=== PATIENT | female | born 1995 ===

== ENCOUNTER 2025-07-30 11:57 | Outpatient (REF) | payer MEDICAID, SELFPAY ==
--- OUTSIDE RECORDS SUMMARY | 2025-07-29 14:15 | XMS_ITS | Encounter Summary ---
Author Organization [employer] Address [address] [facility] [address] [place] [address] Care Team Providers Care Backer Up Name Role Phone Kirsten Motley NP Primary Care Provider [phone] Reason for Visit * Reason Comments pelvic exam / pap smear Pelvic exam / pa p smear Encounter Details Date Type Department Care Team (Latest Contact Info) Description 07/29/2025 2:15 PM EDT Procedure Visit [facility] [address] [place] [address] Arabella Tucker CNM [address] [place] [address] Cervical cancer screening (Primary Dx); Screening examination for venereal disease Social History Tobacco Use Types Packs/Day Years Used Date Smoking Tobacco: Never Passive Smoke Exposure: Never Smokeless Tobacco: Never Alcohol Use Standard Drinks/Week Comments Never 0 (1 standard drink = 0.6 oz pur e alcohol) Depression Answer Date Recorded Patient Health Questionnaire-9 Score 0 03/14/2025 Patient Health Questionnaire-9 Score 0 03/14/2025 Last PHQ-9: Questionnaire Data Not on file 0 03/14/2025 Housing Stability Answer Date Recorded What is your housing situation today? I have jae diane 03/14/[address] you li ve. Do you have problems with any of the following? None of the above 03/14/2025 Food Insecurity Answer Date Recorded Within the past 12 months, y ou worried that your food would run out before you got money to buy more: Never True 03/14/2025 Within the past 12 months,th e food you bought just didn't last and you didn't have enough money to get more: Never True Transportation Answer Date Recorded In the past 12 months, has l ack of transportation kept you from medical appts, meetings, work or from getting things needed for daily living? No 03/14/2025 Utilities Answer Date Recorded In the past 12 months, has t he electric, gas, oil or water company threatened to shut off services in your home? No 03/14/2025 Depression Answer Date Recorded Patient Health Questionnaire-2 Score 0 03/14/2025 Internet Access Answer Date Recorded Internet Access Q1 No 03/14/2025 Internet Access Q2 I cannot afford it 03/14/2025 Comments Unknown Intention Date Recorded No desire to become (finding) 0 07/29/2025 Sex and Gender Information Value Date Recorded Sex Assigned at Female 03/05/2025 9:43 AM EDT Legal Sex Female 11:30 AM EST Gender Identity Female 03/05/2025 9:43 AM EDT Sexual Orientation Straight 03/05/2025 9: 43 AM EDT documented as of this encounter Last Filed Vital Signs Vital Sign Reading Time Taken Comments Blood Pressure 110/68 07/29/2025 2:37 PM EDT Pulse 88 07/29/2025 2:37 PM EDT Temperature 36.1 C (97 F) 07/29/2025 2:37 PM EDT Respiratory Rate 20 07/29/2025 2:37 PM EDT Oxygen Saturation - - Inhaled Oxygen Concentration - - Weight 72.6 kg (160 lb) 07/29/2025 2:37 PM EDT Height 162.6 cm (5' 4 ) 07/29/2025 2:37 PM EDT Body Mass Index 27.46 07/29/2025 2:37 PM EDT documented in this encounter Progress Notes * Arabella Tucker, DUONG - 07/29/2025 2:15 PM EDT Subjective Patient ID: Myra Hoffmann is a 30 y.o. female who presents for pap She thinks she had a pap a year ago in [place], but no results available. No prior abnormal. Started on Xulane 03/2025. Happy with method, denies ACHES. No missed/late patches. Would like breast and pelvic exam today. 1 AMAB partner x 5y, no safety concerns. Monthly menses x 5 days. No heavy flow orbothersome cramps. LMP 07/20/2025. Agrees to pap based STI testing today. Noticed some vaginal discomfort recently, no other vaginal or urinary symptoms. Review of Systems Eyes: Negative for visual disturbance. Respiratory: Negative for shortness of breath. Cardiovascular: Negative for chest pain and leg swelling. Genitourinary: Negative for dyspareunia, dysuria, frequency, genital sores, hematuria, menstrual problem, pelvic pain, urgency, vaginal bleeding, vaginal discharge and vaginal pain. No abnormal pap, no abnormal bleeding, no breast pain, no breast mass, no nipple discharge Skin: Negative for color change. Neurological: Negative for headaches. Objective BP 110/68 (BP Location: Left arm, Patient Position: Sitting, BP Cuff Size: Adult) Pulse 88 Temp97 ??F (36.1 ??C) (Oral) Resp 20 Ht 5' 4 (1.626 m) Wt 160 lb (72.6 kg) LMP 07/25/2025 BMI 27.46 kg/m?? Physical Exam Exam conducted with a fast food services manager present (Lore Flynn). Constitutional: Appearance: Normal appearance. Chest: Breasts: Right: Normal. No swelling, bleeding, inverted nipple, mass, nipple discharge, skin change or tenderness. Left: Normal. No swelling, bleeding, inverted nipple, mass, nipple discharge, skin change or tenderness. Genitourinary: General: Normal vulva. Labia: Right: No rash, tenderness, lesion or injury. Left: No rash, tenderness, lesion or injury. Vagina: Normal. No signs of injury and foreign body. No vaginal discharge, erythema, tenderness, bleeding or lesions. Cervix: No cervical motion tenderness, discharge, friability, lesion, erythema, cervical bleeding or eversion. Uterus: Normal. Not enlarged and not tender. Adnexa: Right adnexa normal and left adnexa normal. Right: No mass, tenderness or fullness. Left: No mass, tenderness or fullness. Lymphadenopathy: Upper Body: Right upper body: No supraclavicular or axillary adenopathy. Left upper body: No supraclavicular or axillary adenopathy. Neurological: Mental Status: She is alert. Psychiatric: Mood and Affect: Mood normal. Behavior: Behavior normal. Assessment/Plan Diagnoses and all orders for this visit: Cervical cancer screening - Pap Smear Cotest today. Repeat 5 years if normal/HPV negative. Will contact with results. Benign pelvic exam today. If yeast/bacterial vaginosis on pap, will treat. Screening examination for venereal disease - STI testing add on (NG, CT, Trich) Gonorrhea/Chlamydia/trichomonas off pap sent. Will contact with results Happy with patch. Reviewed side effects and danger signs. documented in this encounter Plan of Treatment Scheduled Orders Name Type Priority Associated Diagnoses Orde r Schedule Pap Smear Pathology and Cytology Routine Cervical cancer screening Ordered: 07/29/2025 STI testing add on (NG, CT, Trich) Pathology and Cytology Routine Screening examination for venereal disease Ordered: 07/29/2025 documented as of this encounter Visit Diagnoses Diagnosis Cervical cancer screening- Primary Screening for malignant neoplasm of the cervix Screening examination for venereal disease documented in this encounter Additional Health Concerns Assessment Noted Time PHQ-9 Depression Total Score: 0 03/14/20 10:58 AM EDT documented as of this encounter Care Teams Backer Up Relationship Specialty Start Date End Date Kirsten Motley NP [address] [place] [phone] PCP - General Family Medicine 03/14/25 documented as of this encounter
--- OUTSIDE RECORDS SUMMARY | 2025-07-30 15:11 | XMS_ITS | Clinical Summary ---
Author Organization [employer] Address [address] [facility] 7t [place] [address] Care Team Providers Care Fnp Name Role Phone Kirsten Motley NP Primary Care Provider [phone] Allergies No known active allergies Medications norelgestromin-eth inyl estradiol (Xulane) 150-35 MCG/24HRIndication s:Encounter for counseling regarding contraception Apply 1 patch each week for 3 weeks, then remove for 1 week. 3 patch 12 04/18/20 26 Active Active Problems No known active problems Encounters Date Type Department Care Team Description 07/29/2025 2:15 PM EDT Procedure Visit [facility] [address] [place] [phone] Arabella Tucker CNM Cervical cancer screening (Primary Dx); Screening examination for venereal disease 07/29/2025 Travel 06/18/2025 2:30 PM EDT Office Visit [facility] [address] [place] [phone] Kirsten Motley NP Encounter for surveillance of transdermal patch hormonal contraceptive device (Primary Dx) 06/18/2025 Travel 06/17/2025 Telephone [facility] [address] [place] [address] Fabiola Crane MA CHARTPREP 05/26/2025 Telephone [facility] [address] [place] [phone] Kirsten Motley NP Med Refill from Last 3 Months Family History Medical History Relation Name Comments No Known Problems Father Ulcers Mother Relation Name Status Comments Father Mother Social History Tobacco Use Types Packs/Day Years Used Date Smoking Tobacco: Never Passive Smoke Exposure: Never Smokeless Tobacco: Never Tobacco Cessation:Counseling Given: Not Answered Alcohol Use Standard Drinks/Week Comments Never 0 [...] Orientation Straight 03/05/2025 9: 43 AM EDT Last Filed Vital Signs Vital Sign Reading Time Taken Comments Blood Pressure 110/68 07/29/2025 2:37 PM EDT Pulse 88 07/29/2025 2:37 PM EDT Temperature 36.1 C (97 F) 07/29/2025 2:37 PM EDT Respiratory Rate 20 07/29/2025 2:37 PM EDT Oxygen Saturation 99% 06/18/2025 2:40 PM EDT Inhaled Oxygen Concentration - - Weight 72.6 kg (160 lb) 07/29/2025 2:37 PM EDT Height 162.6 cm (5' 4 ) 07/29/2025 2:37 PM EDT Body Mass Index 27.46 07/29/2025 2:37 PM EDT Plan of Treatment Health Maintenance Due Date Last Done Comments HIV Screening 1995 HPV Vaccines (1 - 3-dose series) 2010 Hepatitis C Screening 2013 DTaP/Tdap/Td Vaccines (1 - Tdap) 2014 Hepatitis B Vaccines (1 of 3 - 19+ 3-dose series) 2014 Pap Smear 2016 Cervical Cancer Screening 2025 HPV/Cotest 2025 COVID-19 Vaccine (1 - 2023-2 5 season) 2025 Influenza Vaccine (#1) 2025 Alcohol/Substance Use Screening 03/14/2026 03/14/2025 Depression Screening 03/14/2026 03/14/2025, 03/14/2025 Disability Screening 03/14/2026 03/14/2025 SDOH Screening 03/14/2026 03/14/2025 Tobacco Screening 07/01/2026 07/01/2025 Family Planning (PISQ) 07/29/2026 07/29/2025 Zoster Vaccines (1 of 2) 2045 RSV Patients and Patients Aged 60 years or older (1 - 1-dose 75+ series) 2070 HIB Vaccines Aged Out No longer eligi ble based on patient's age to complete this topic Hepatitis A Vaccines Aged Out No long er eligible based on patient's age to complete this topic IPV Vaccines Aged Out No longer eligi ble based on patient's age to complete this topic Meningococcal B Vaccine Aged Out No l onger eligible based on patient's age to complete this topic Meningococcal Vaccine Aged Out No sharron te eligible based on patient's age to complete this topic Pneumococcal Vaccine: Pediatrics (0 to 5 Years) and At-Risk Patients (6 to 49) Years Aged Out No longer eligible b ased on patient's age to complete this topic RSV under 20 months Aged Out No longe r eligible based on patient's age to complete this topic Rotavirus Vaccines Aged Out No longer eligible based on patient's age to complete this topic Insurance [employer] C3 Care Teams Fnp Relationship Specialty Start Date End Date Kirsten Motley NP [address] [place] [id number] PCP - General Family Medicine 03/14/25
--- OUTSIDE RECORDS SUMMARY | 2025-07-30 15:11 | XMS_ITS | Encounter Summary ---
Author Organization [employer] Address [address] [facility] [address] [place] [address] Care Team Providers Care Chairman President And Chief Executive Officer Name Role Phone Kirsten Motley NP Primary Care Provider [phone] Encounter Details Date Type Department Care Team (Latest Contact Info) Description 07/29/2025 Travel Social History Tobacco Use Types Packs/Day Years [...] I cannot afford it 03/14/2025 Comments Unknown Sex and Gender Information Value Date Recorded Sex Assigned at Female 03/05/2025 9:43 AM EDT Legal Sex Female 11:30 AM EST Gender Identity Female 03/05/2025 9:43 AM EDT Sexual Orientation Straight 03/05/2025 9: 43 AM EDT documented as of this encounter Plan of Treatment Not on file documented as of this encounter Visit Diagnoses Not on filedocumented in this encounter Additional Health Concerns Assessment Noted Time PHQ-9 Depression Total Score: 0 03/14/20 10:58 AM EDT documented as of this encounter Care Teams Chairman President And Chief Executive Officer Relationship Specialty Start Date End Date Kirsten Motley NP [address] [place] [phone] PCP - General Family Medicine 03/14/25 documented as of this encounter
[2025-07-31 21:09] LABS: Trichomonas (NAAT) NOT DETECTED (NOT DETECTED)
[2025-07-31 21:43] LABS: C. trachomatis RNA TMA NOT DETECTED (NOT DETECTED); N. gonorrhoeae RNA TMA NOT DETECTED (NOT DETECTED)
== END 2025-07-30 11:58 | disposition home or self-care (01) ==
LOC: HO.LNP 11:57
PROVIDERS: Visit Provider Advanced Practice Midwife
DX: Z12.4 Encounter for screening for malignant neoplasm of cervix (principal); Z11.3 Encounter for screening for infections with a predominantly sexual mode of transmission; Z11.51 Encounter for screening for human papillomavirus (HPV); Z11.8 Encounter for screening for other infectious and parasitic diseases
CPT/HCPCS: 87491; 87591; 87626; 87661; 88175

== ENCOUNTER 2025-10-08 17:36 | Outpatient (REF) | payer MEDICAID, SELFPAY ==
--- OUTSIDE RECORDS SUMMARY | 2025-10-08 14:20 | XMS_ITS | Encounter Summary ---
Author Organization [employer] Address [address] [place] [address] 7[address] [place] [address] Care Team Providers Care Diesel Mechanic Farm Name Role Phone Kirsten Motley NP Primary Care Provider [phone] Reason for Referral * Imaging (Routine) - Authorized Specialty Diagnoses / Procedures Referred By Contac t Referred To Contact Radiology Diagnoses Metrorrhagia Procedures US Pelvis Transvaginal Ivelisse Andrews MD [address] [place] [address] Phone: tel: fax: [address] Phone: tel: fax: Referral ID Status Reason Start Date Expiration Date V isits Requested Visits Authorized [id number] Authorized 10/08/2025 10/08/2026 1 1 * Imaging (Routine) - Authorized Specialty Diagnoses / Procedures Referred By Contac t Referred To Contact Radiology Diagnoses Metrorrhagia Procedures Us Pelvis complete Ivelisse Andrews MD [address] [place] [address] Phone: tel: fax: [address] Phone: tel: fax: Referral ID Status Reason Start Date Expiration Date V isits Requested Visits Authorized [id number] Authorized 10/08/2025 10/08/2026 1 1 Encounter Details Date Type Department Care Team (Late st Contact Info) Description 10/08/2025 2:20 PM EST Office Visit [facility] [address] [place] [address] Ivelisse Andrews MD [address] [place] [address] Metrorrhagia Social History Tobacco Use Types Packs/Day Years [...] is your housing situation today? I have jea diane 03/14/[address] you [...] Sign Reading Time Taken Comments Blood Pressure 118/77 10/08/2025 2:09 PM EST Pulse 73 10/08/2025 2:09 PM EST Temperature 35.1 C (95.1 F) 10/08/2025 2:09 PM EST Respiratory Rate 16 10/08/2025 2:09 PM EST Oxygen Saturation 99% 10/08/2025 2:09 PM EST Inhaled Oxygen Concentration - - Weight 74.1 kg (163 lb 6.4 oz) 10/08/2025 2:09 P M EST Height 162.6 cm (5' 4 ) 10/08/2025 2:09 PM EST Body Mass Index 28.05 10/08/2025 2:09 PM EST documented in this encounter Progress Notes * Ivelisse Slaughter MD - 10/08/2025 2:20 PM EST ID tow operator [id number] SUBJECTIVE: Myra Hoffmann is a 30 y.o. year old female who presents for New patient/acute visit . Occupation:works at the [employer] Lives with: and kids - EtOH denies - smoking cigarettes denies - recreational drug use denies Diet:regular Exercise:sedentary LMP: 09/29/25 Patient is using contraceptive patch Surgeries/Hospitalizations: x1 PMHx:none FMHx:none Myra Hoffmann, age 30 years Heavy Menstrual Bleeding - Reports heavy periods with excessive blood and blood clots for the past 4 months - Uses approximately 3 pads per day during menstruation - Mild pain associated with periods - Denies weakness, dizziness, palpitations - Denies Photophobia - First episode of photophobia reported prior to visit Contraceptive Use - Using control patch for the past 4 months - No prior similar symptoms before starting control patch Previous Abnormal Pap Smear - History of referral to gynecology for previous abnormal Pap smear Social History Social History Narrative Not on file Problem List[1] Family History[2] Review of Systems Constitutional: Negative. HENT: Negative. Respiratory: Negative. Cardiovascular: Negative. Genitourinary: Positive for menstrual problem, pelvic pain and vaginal bleeding. Negative for decreased urine volume, difficulty urinating, dyspareunia, dysuria, enuresis, flank pain, frequency, genital sores, hematuria, urgency, vaginal discharge and vaginal pain. OBJECTIVE: Vitals: 10/08/25 1409 BP: 118/77 BP Location: Left arm Patient Position: Sitting BP Cuff Size: Adult Pulse: 73 Resp: 16 Temp: 95.1 ??F (35.1 ??C) TempSrc: Temporal SpO2: 99% Weight: 163 lb 6.4 oz (74.1 kg) Height: 5' 4 (1.626 m) Physical Exam Constitutional: Appearance: Normal appearance. Cardiovascular: Rate and Rhythm: Normal rate and regular rhythm. Pulmonary: Effort: Pulmonary effort is normal. Breath sounds: Normal breath sounds. Abdominal: General: Abdomen is flat. Palpations: Abdomen is soft. Tenderness: There is no abdominal tenderness. Musculoskeletal: Right lower leg: No edema. Left lower leg: No edema. Neurological: Mental Status: She is alert. Follow Up: No follow-ups on file. Medications Ordered Prior to Encounter[3] Problem List Items Addressed This Visit Metrorrhagia Relevant Medications ibuprofen 800 MG tablet Other Relevant Orders CBC auto differential Comprehensive Metabolic Panel Hemoglobin A1c HIV-1/2 Antigen and Antibodies, Fourth Generation, with Reflexes Hepatitis C Antibody with Reflex to HCV, RNA, Quantitative, Real-Time PCR Lipid Panel, Standard Vitamin D, 25-Hydroxy, Total, Immunoassay TSH with Reflex to Free T4 Us Pelvis complete US Pelvis Transvaginal Bacterial Vaginosis Panel hCG, Total, Quantitative Metrorrhagia: - Metrorrhagia with associated menorrhagia and mild dysmenorrhea. No dizziness or palpitations. No suspicion of . Differential includes possible vaginal infection or other gynecologic pathology. - Prescribed ibuprofen 800 mg every 8 hours for up to 3 days to manage pain and bleeding. Ordered blood tests including routine labs, glucose, kidney and liver function, HIV, hepatitis, and vitamin D. Ordered pelvic ultrasound to evaluate uterus and ovaries. Ordered vaginal swab to assess for infection. Placed referral to gynecology. Confirmed upcoming gynecology appointment. This note was drafted using Ambient ([employer]) technology. The patient/patient's guardian has been informed and has consented to the use of this technology: Yes [1] Patient Active Problem List Diagnosis Metrorrhagia [2] Family History Problem Relation Name Age of Onset Ulcers Mother No Known Problems Father [3] Current Outpatient Medications on File Prior to Visit Medication Sig Dispense Refill norelgestromin-ethinyl estradiol (Xulane) 150-35 MCG/24HR Apply 1 patch each week for 3 weeks, thenremove for 1 week. 3 patch 12 No current facility-administered medications on file prior to visit. documented in this encounter Plan of Treatment Scheduled Orders Name Type Priority Associated Diagnoses Orde r Schedule CBC auto differential Lab Routine Metrorrhagia Expected: 10/08/2025 (Approximate), Expires: 10/08/2026 Comprehensive Metabolic Panel Lab Routine Metrorrhagia Expected: 10/08/2025 (Approximate), Expires: 10/08/2026 Hemoglobin A1c Lab Routine Metrorrhagia Expected: 10/08/2025 (Approximate), Expires: 10/08/2026 HIV-1/2 Antigen and Antibodies, Fourth Generation, with Reflexes Lab Routine Metrorrhagia Expected: 10/08/2025 (Approximate), Expires: 10/08/2026 Hepatitis C Antibody with Reflex to HCV, RNA, Quantitative, Real-Time PCR Lab Routine Metrorrhagia Expected: 10/08/2025, Expires: 10/08/2026 Lipid Panel, Standard Lab Routine Metrorrhagia Expected: 10/08/2025 (Approximate), Expires: 10/08/2026 Vitamin D, 25-Hydroxy, Total, Immunoassay Lab Routine Metrorrhagia Expected: 10/08/2025 (Approximate), Expires: 10/08/2026 TSH with Reflex to Free T4 Lab Routine Metrorrhagia Expected: 10/08/2025 (Approximate), Expires: 10/08/2026 Us Pelvis complete Imaging Routine Metrorrhagia Expected: 10/08/2025, Expires: 10/08/2026 US Pelvis Transvaginal Imaging Routine Metrorrhagia Expected: 10/08/2025, Expires: 10/08/2026 hCG, Total, Quantitative Lab Routine Metrorrhagia Expected: 10/08/2025 (Approximate), Expires: 10/08/2026 documented as of this encounter Procedures Procedure Name Priority Date/Time Associated Diagnosis Comments BACTERIAL VAGINOSIS PANEL Routine 10/08/2025 3:24 PM EST Metrorrhagia documented in this encounter Results * Bacterial Vaginosis Panel (10/08/2025 3:24 PM EST) TRICHOMONAS VAGINALIS DETECTION BY PCR NOT DETECTED Not Detect [facility] BACTERIAL VAGINOSIS DETECTION BY PCR NEGATIVE Negative [facility] Comment:The BV organism targ ets of the Xpert Xpress MVP test can becommensal in women; Xpert Xpress MVP positive results forbacterial vaginosis should be considered in conjunction withother clinical and patient information to determine thedisease status. Organisms that are not detected by the XpertXpress MVP test have also been reported to be associatedwith BV and aerobic vaginitis.The Xpert Xpress MVP test performance has not been evaluatedin patients under the age of 14. SOFIA GROUP DETECTION BY PCR NOT DETECTED Not Detect [facility] Sofia glab krusei PCR NOT DETECTED Not Detect [facility] Swab Vaginal structure / Unknown 10/08/2025 3:24 PM EST 10/08/2025 5:39 PM EST Ivelisse Slaughter MD LAB MICROBIOLOGY - GE NERAL ORDERABLES Final Result [facility] [address] [place] [phone] documented in this encounter Visit Diagnoses Diagnosis Metrorrhagia documented in this encounter Additional Health Concerns Assessment Noted Time PHQ-9 Depression Total Score: 0 03/14/20 25 10:58 AM EDT documented as of this encounter Care Teams Diesel Mechanic Farm Relationship Specialty Start Date End Date Kirsten Motley NP [address] [place] [phone] PCP - General Family Medicine 03/14/25 documented as of this encounter
[2025-10-09 03:21] LABS: Bacterial Vaginosis PCR NEGATIVE (Negative); Candida Group PCR NOT DETECTED (Not Detect); Candida glab krusei PCR NOT DETECTED (Not Detect); Trichomonas vaginalis PCR NOT DETECTED (Not Detect)
--- OUTSIDE RECORDS SUMMARY | 2025-10-09 05:05 | XMS_ITS | Encounter Summary ---
Author Organization [employer] Address [address] [facility] [address]t [place] [address] Care Team Providers Care Spear Fisher Name Role Phone Kirsten Motley NP Primary Care Provider [phone] Reason for Visit * Reason Onset Date Comments FYI 08/11/2025 Encounter Details Date Type Department Care Team ([facility] st Contact Info) Description 08/11/2025 Telephone [facility] [address] [place] [address] Kirsten Motley NP [address] [place] [address] FY Social History Tobacco Use Types Packs/Day Years [...] AM EDT documented as of this encounter Miscellaneous Notes * Telephone Encounter - Clare Ramos - 08/11/2025 3:20 PM EDT Tc from pt requesting an negotiator sales. Door Cutter got information and try to call back with an negotiator sales (try 2 times in same call) pt did not answer documented in this encounter Plan of Treatment Not on file documented as of this encounter Visit Diagnoses Not on filedocumented in this encounter Additional Health Concerns Assessment Noted Time PHQ-9 Depression Total Score: 0 03/14/20 10:58 AM EDT documented as of this encounter Care Teams Spear Fisher Relationship Specialty Start Date End Date Kirsten Motley NP [address] [place] [phone] PCP - General Family Medicine 03/14/25 documented as of this encounter
--- OUTSIDE RECORDS SUMMARY | 2025-10-09 05:05 | XMS_ITS | Clinical Summary ---
Author Organization [employer] Address [address] [place] [address] Care Team Providers Care Haul Truck Driver Name Role Phone Kirsten Motley NP Primary Care Provider [phone] Allergies No known active allergies Medications norelgestromin-eth inyl estradiol (Xulane) 150-35 MCG/24HRIndication s:Encounter for counseling regarding contraception Apply 1 patch each week for 3 weeks, then remove for 1 week. 3 patch 12 5 04/18/20 26 Active ibuprofen 800 MG tabletIndications: Metrorrhagia Take 1 tablet (800 mg) by mouth every 8 (eight) hours if needed for moderate pain for up to 10 days. 30 tablet 5 10/18/20 25 Active Active Problems Problem Noted Date Diagnosed Date Metrorrhagia 10/08/2025 Encounters Date Type Department Care Team Description 10/08/2025 2:20 PM EST Office Visit [facility] [address] [place] [phone] Ivelisse Andrews MD Metrorrhagia 10/08/2025 Travel 10/03/2025 Orders Only [facility] [address] [place] [address] [phone] Silvia Rene CNM Low grade squamous intraepithelial lesion (LGSIL) on cervical Pap smear (Primary Dx) 09/18/2025 9:00 AM EDT Office Visit [facility] [address] [place] [phone] Kirsten Motley NP Low grade squamous intraepithelial lesion (LGSIL) on cervical Pap smear (Primary Dx); Encounter for immunization 09/18/[address] [address] Kirsten Motley NP Referral 09/18/2025 Travel 09/17/2025 Telephone [facility] [address] [place] [address] Kirsten Motley NP Chart Prep 09/01/[address] [address] Kirsten Motley NP october recall 08/14/[address] [address] Kirsten Motley NP Results 08/11/[address] [address] Kirsten Motley NP FYI 08/05/2025 Orders Only [address] [address] Silvia Rene CNM Low grade squamous intraepithelial lesion (LGSIL) at risk for high grade squamous intraepithelial lesion (HGSIL) on cytologic smear of cervix (Primary Dx); Cervical high risk human papillomavirus (HPV) DNA test positive 08/05/2025 Results Follow-Up [address] [address] Silvia Rene CNM Pap Smear, STI testing add on (NG, CT, Trich) 07/29/2025 2:15 PM EDT Procedure Visit [address] [address] Silvia Rene CNM Cervical cancer screening (Primary Dx); Screening examination for venereal disease 07/29/2025 Orders Only [address] [address] Silvia Rene CNM 07/29/2025 Travel from Last 3 Months Immunizations Immunization Administration Dates Next Due HepB-CpG 09/18/2025 Tdap 09/18/2025 Family History Medical History Relation Name Comments [...] Mass Index 28.05 10/08/2025 2:09 PM EST Plan of Treatment Health Maintenance Due Date Last Done Comments HIV Screening 1995 HPV Vaccines (1 - 3-dose series) 2010 Hepatitis C Screening 2013 COVID-19 Vaccine (2024-2 6 season) 2025 Influenza Vaccine (#1) 2025 Colposcopy 07/30/2025 Hepatitis B Vaccines (2 of 2 - CpG 2-dose series) 10/16/2025 09/18/2025 Alcohol/Substance Use Screening 03/14/2026 03/14/2025 Depression Screening 03/14/2026 03/14/2025, 03/14/2025 Disability Screening 03/14/2026 03/14/2025 SDOH Screening 03/14/2026 03/14/2025 Family Planning (PISQ) 07/29/2026 07/29/2025 Tobacco Screening 09/18/2026 09/18/2025 Pap Smear 07/29/2028 07/29/2025 Cervical Cancer Screening 07/29/2030 HPV/Cotest 07/29/2030 07/29/2025 DTaP/Tdap/Td Vaccines (2 - T d or Tdap) 09/18/2035 09/18/2025 Zoster Vaccines (1 of 2) 2045 RSV [...] on patient's age to complete this topic Procedures Procedure Name Priority Date/Time Associated Diagnosis Comments BACTERIAL VAGINOSIS PANEL Routine 10/08/2025 3:24 PM EST Metrorrhagia CHLAMYDIA/N. GONORRHOEAE AND T. VAGINALIS RNA, QUAL,TMA Routine 07/29/2025 3:00 PM EDT Screening examination for venereal disease PAP SMEAR Routine 07/29/2025 3:00 PM EDT Cervical cancer screening HPV DNA, LOW/HIGH RISK Routine 07/29/2025 3:00 PM EDT from Last 3 Months Results * Bacterial Vaginosis Panel (10/08/2025 3:24 PM EST) TRICHOMONAS VAGINALIS DETECTION BY PCR NOT DETECTED Not Detect [facility] BACTERIAL VAGINOSIS DETECTION BY PCR NEGATIVE Negative [facility] Comment:The BV organism targ ets of [...] DETECTION BY PCR NOT DETECTED Not Detect [facility] Sofia glab krusei PCR NOT DETECTED Not Detect [facility] Swab Vaginal structure / Unknown 10/08/2025 3:24 PM EST 10/08/2025 5:39 PM EST Ivelisse Slaughter MD LAB MICROBIOLOGY - GE NERAL ORDERABLES Final Result Performing Organization Address [facility] Co de Phone Number [facility] [address] [place] [address] [phone] * STI testing add on (NG, CT, Trich) (07/29/2025 3:00 PM EDT) Trichomonas (NAAT) NOT DETECTED NOT DETECTED [facility] Comment:The analytical perfo rmance characteristics of thisassay have been determined by [employer]. Themodifications have not been cleared or approved bythe FDA. This assay has been validated pursuant to theIA regulations and is used for clinical purposes.For additional information, please refer tohttp://education.NuLabel/faq/Trichomonastma(This link is being provided for information/educational purposes only.)THIS TEST WAS PERFORMED AT:[email or web address] [place] [id number] PRICE MD CTNG Ref Lab NOT DETECTED NOT DETECTED [facility] NG Ref Lab NOT DETECTED NOT DETECTED [facility] ThinPrep vial Cervix uteri structure / Unknown 07/29/2025 3:00 PM EDT 07/30/2025 11:19 AM EDT Narrative [facility] - 07/31/2025 9:43 PM EDT Collection Date: [id number] by: MARCELLA Crabtree: Cervix Silvia ROJAS LAB CYTOLOGY ORDERABLES F inal Result Performing Organization Address [facility]/ZIP Co de Phone Number [facility] [address] [place] [address] [phone] * (ABNORMAL) HPV DNA, Low/High Risk (07/29/2025 3:00 PM EDT) HPV High Risk Negative Negative [facility] HPV Genotype 16 Negative Negative [facility] HPV Genotype 18 Positive(A) Negative [facility] Comment:HPV testing performe d at [facility] (CLIA#[id number]), [address] [place] [address].Testing for HPV was performed using the [employer] THOM 6800system. The presence of HPV in the female genital tract isassociated with a number of diseases, including cervicalcarcinoma. The HPV DNA high risk pool tests for HPV 31, 33,35, 39, 45, 51, 52, 56, 58, 59, 66 and 68. The testing forHPV 16 and 18 genotypes has also been performed. A positiveresult indicates detection of nucleic acid sequences fromone or more subtypes, whereas a negative result indicatessuch sequences were not detected. 07/29/2025 3:00 PM EDT 07/30/2025 11:19 AM EDT us Silvia Rene CNM LAB BLOOD ORDERABLES Mandi l Result [facility] [address] [place] [phone] * Pap Smear (07/29/2025 3:00 PM EDT) Swab Cervix uteri structure / Unknown 07/29/2025 3:00 PM EDT 07/30/2025 11:19 AM EDT Narrative [facility] - 08/05/2025 12:10 PM EDT ----- ------- Name: Lj AdairMyra corado Age/Sex: 30/F : 1995 Unit#: [id number] Attend Dr: SILVIA RENE CNM Re07/30/25 Status: DEP REF Location: [facility] Disch: ----- ------- SPEC : [id number] RECD: 07/30/25 STATUS: CAMILLA MORENO NUM: [id number] ESTRELLITA: 07/29/25-[address]: SILVIA RENE CNM ENTERED: 07/30/25 SP TYPE: Pap Smr OTHR DR: ORDERED: Pap Smear, PAP path review Interpretation General Category: Epithelial cell abnormality. Adequacy: Endocervical component present. Interpretation: Low grade squamous intraepithelial lesion (JADE I), cannot exclude a high grade lesion. HPV High Risk: Negative HPV Genotyping 16: Negative HPV Genotyping 18: Positive Clinical Information LMP: Unknown date Previous PAP test: Unknown date/findings Other history: Cervical cancer screening Material Received ThinPrep-Cervical PAP Disclaimer As of September 11, 2024, the technical services to include automated prescreening performed by the ThinPrep Imaging System, PAP screening and HPV testing will be performed at [facility] (CLIA #[id number]), [address] [place] [address]. Testing for HPV was performed using the [employer] THOM 6800 system. The presence of HPV in the female genital tract is associated with a number of diseases, including cervical carcinoma. The HPV DNA high risk pool tests for HPV 31, 33, 35, 39, 45, 51, 52, 56, 58, 59, 66 and 68. The testing for HPV 16 and 18 genotypes has also been performed. A positive result indicates detection of nucleic acid sequences from one or more subtypes, whereas a negative result indicates such sequences were not detected. All professional services are performed by [facility] ([address] [place] [id number]; ; CLIA #[id number]). The PAP Test is a screening procedure with the inherent possibility of both false negative and false positive results. Results should be interpreted in the context of historic and current clinical findings. Reliability of the PAP Test is enhanced by performing the test on a regular repetitive basis. CONTINUED ON NEXT PAGE ----- ------- Name: Lj HoffmannMyra Age/Sex: 30/F : 1995 Unit#: [id number] Attend Dr: SILVIA RENE CNM Re07/30/25 Status: DEP REF Location: [facility] Disch: ----- ------- SPEC : [id number] RECD: 07/30/25 STATUS: CAMILLA MORENO NUM: [id number] ESTRELLITA: 07/29/25-[address]: SILVIA RENE ENTERED: 07/30/25-1224 SP TYPE: Latrell SORIANO DR: ORDERED: Pap Smear, PAP path review ----- ------- Signed (signature on file) Vaishnavi Givens 08/05/25 1210 ----- ------- END OF REPORT Silvia Rene [facility] LAB CYTOLOGY ORDERABLES F inal Result [facility] [address] [place] [address] [phone] from Last 3 Months Insurance [employer] C3 Care Teams Haul Truck Driver Relationship Specialty Start Date End Date Kirsten Motley NP [address] [place] [address] PCP - General Family Medicine 03/14/25
--- OUTSIDE RECORDS SUMMARY | 2025-10-09 05:05 | XMS_ITS | Encounter Summary ---
Author Organization [employer] Address [address] [place] [address] Care Team Providers Care Formula Mixer Name Role Phone Kirtsen Motley NP Primary Care Provider [phone] Reason for Visit * Reason Onset Date Comments Referral 09/18/2025 Encounter Details Date Type Department Care Team ([facility] st Contact Info) Description 09/18/2025 Telephone [facility] [address] [place] [address] Kirsten Motley NP [address] [place] [address] Referral Social History Tobacco Use Types Packs/Day Years [...] encounter Miscellaneous Notes * Telephone Encounter - Venice Pascal RN - 10/07/2025 9:16 AM EST TC X3 placed to the pt in regards to informing about OBGYN referral. No answer but another VM was left to call back the office. Will mail the pt a letter to address on file requesting a call back to the office. * Telephone Encounter - Venice Pascal RN - 10/06/2025 12:55 PM EST TC X2 placed to the pt to inform of new referral placed by Arabella to OBGYN. Second VM was left to call back the office. Will re task this for one more attempt to contact the pt. * Telephone Encounter - Chloe Wright RN - 10/03/2025 2:58 PM EST Called mobile number to notify of new referral placed, no answer, left voicemail to call back [facility]. Will task to send [employer] message and call again once referral processed. * Telephone Encounter - Arabella Tucker CNM - 10/03/2025 2:55 PM EST Referral placed. * Telephone Encounter - Salma Estrada - 10/03/2025 11:13 AM EST Patient walked in regarding this message. Patient would like new referral to OBGYN at different location. Patient can no longer be seen at Dr. Remy Office due to the No Show. * Telephone Encounter - Darlin Garcia RN - 09/18/2025 10:01 AM EDT TC placed to Dr Lincoln office per PCP request to reschedule appointment. Per office, since ptno showed to their appointment, they are unable to reschedule. Advised there was a misunderstandingand pt thought appointment was at our office. Dr Lincoln office states they are unable to reschedule since pt no showed their new patient appointment. Asked if a new referral can be placed if the pt can be seen. Dr Lincoln office denies and states since they missed their appointment will not be able to be rescheduled. PCP aware. documented in this encounter Plan of Treatment Not on file documented as of this encounter Visit Diagnoses Not on filedocumented in this encounter Additional Health Concerns Assessment Noted Time PHQ-9 Depression Total Score: 0 03/14/20 10:58 AM EDT documented as of this encounter Care Teams Formula Mixer Relationship Specialty Start Date End Date Kirsten Motley NP [address] [place] [phone] PCP - General Family Medicine 03/14/25 documented as of this encounter
--- OUTSIDE RECORDS SUMMARY | 2025-10-09 05:05 | XMS_ITS | Encounter Summary ---
Author Organization [employer] Address [address] [place] [address] Care Team Providers Care Tugboat Dispatcher Name Role Phone Kirsten Motley NP Primary Care Provider [phone] Encounter Details Date Type Department Care Team (Latest Contact Info) Description 10/08/2025 Travel Social History Tobacco Use Types Packs/Day [...] documented as of this encounter Care Teams Tugboat Dispatcher Relationship Specialty Start Date End Date Kirsten Motley NP [address] [place] [phone] PCP - General Family Medicine 03/14/25 documented as of this encounter
== END 2025-10-08 17:37 | disposition home or self-care (01) ==
LOC: HO.HHCLNP 17:36
PROVIDERS: Visit Provider Internal Medicine
DX: N92.1 Excessive and frequent menstruation with irregular cycle (principal); Z20.2 Contact with and (suspected) exposure to infections with a predominantly sexual mode of transmission
CPT/HCPCS: 81515